=== PATIENT | female | born 1995 | race Asian ===

== ENCOUNTER 2016-07-20 06:36 | Inpatient (IN) | payer MEDICAID ==
[2016-07-20] MEDS ORDERED: PRENA1 CHEW TA1.4 M1 PO (06:42)
[2016-07-20 09:21] LABS: HCT-HEMATOCRIT 28.5 % (34.0-49.0); HGB-HEMOGLOBIN 9.3 gm/dl (12.0-15.5); IMMATURE GRANULOCYTES ABSOLUTE 0.06 tho/cmm (0-0.03); IMMATURE GRANULOCYTES PERCENT 0.3 % (0-0.3); LYMPH % 6.4 % (20-45); LYMPH ABSOLUTE COUNT 1.3 tho/cmm (0.8-4.5); MCHC MEAN CORPUSCULAR HGB CONC 32.6 % (32.0-36.0); MCV (MEAN CELL VOLUME) 64.3 fl (82.0-96.0); MONO % 3.6 % (0-12); MONOCYTE ABSOLUTE COUNT 0.7 tho/cmm (0.0-1.2); NEUTROPHIL ABSOLUTE COUNT 18.2 tho/cmm (1.6-8.0); NEUTROPHIL-AUTOMATED 18.2 tho/cmm (1.6-8.0); NEUTROPHILS % 89.7 % (40-80); PLATELET COUNT 192 tho/cmm (150-450); RED BLOOD COUNT 4.43 mil/cmm (4.00-5.20); RED CELL DISTRIBUTION WIDTH 15.4 % (12.4-16.4); WHITE BLOOD COUNT 20.3 tho/cmm (4.0-10.0)
--- NOTE | 2016-07-20 13:45 | NUR ---
BLUE INTERPRETOR PHONE USED AT 1030 TO EXPLAIN CALL-LIGHT, USING BATHROOM, ROUTINE/FLOWSHEET, ORDERING MEALS, IBUPROFEN GIVEN EVERY 8 HOURS AND TO REPORT EXCESSIVE BLEEDING OR CLOTS. SHE VERBALIZED UNDERSTANDING. REPORT GIVEN TO Suzi GUERRERO RN AT [phone].
[2016-07-21 07:28] LABS: BASO % 0.1 % (0-2); EOS % 0.2 % (0-7); HCT-HEMATOCRIT 25.4 % (34.0-49.0); HGB-HEMOGLOBIN 8.1 gm/dl (12.0-15.5); IMMATURE GRANULOCYTES ABSOLUTE 0.05 tho/cmm (0-0.03); IMMATURE GRANULOCYTES PERCENT 0.4 % (0-0.3); LYMPH % 16.7 % (20-45); LYMPH ABSOLUTE COUNT 2.4 tho/cmm (0.8-4.5); MCH (MEAN CORPUSCULAR HGB) 20.6 pg (28.0-32.0); MCHC MEAN CORPUSCULAR HGB CONC 31.9 % (32.0-36.0); MCV (MEAN CELL VOLUME) 64.5 fl (82.0-96.0); MONO % 4.9 % (0-12); MONOCYTE ABSOLUTE COUNT 0.7 tho/cmm (0.0-1.2); NEUTROPHILS % 77.7 % (40-80); PLATELET COUNT 183 tho/cmm (150-450); RED BLOOD COUNT 3.94 mil/cmm (4.00-5.20); RED CELL DISTRIBUTION WIDTH 15.6 % (12.4-16.4); WHITE BLOOD COUNT 14.1 tho/cmm (4.0-10.0)
[2016-07-21] MEDS ORDERED: IBUPROFEN800 M1 PO (21:01)
== END 2016-07-22 17:55 | DRG 776 ==
LOC: LDR 06:36 → OBGE 09:22
PROVIDERS: Registered Nurse Lactation Consultant; ADMIT Advanced Practice Midwife
DX: Z39.0 Encounter for care and examination of mother immediately after delivery (principal)
CPT/HCPCS: J2210